=== PATIENT | male | born 1955 | race Caucasian/White ===

== ENCOUNTER 2016-09-16 08:53 | Day surgery (SDC) | payer OTHER ==
[2016-09-16 11:03] VITALS: BP 129/79; PULSE 50; RESP 18; TEMP 97.4; O2SAT 97
== END 2016-09-16 11:27 | disposition home or self-care (01) | DRG 951 ==
LOC: SURG 08:53
PROVIDERS: ATTEND Surgery
DX: Z12.11 Encounter for screening for malignant neoplasm of colon (principal); D12.5 Benign neoplasm of sigmoid colon; K57.30 Diverticulosis of large intestine without perforation or abscess without bleeding; K63.5 Polyp of colon
CPT/HCPCS: 99001; J2001; J2704